=== PATIENT | female | born 1945 | race Caucasian/White ===

== ENCOUNTER 2018-01-04 16:58 | Emergency (ER) | payer MEDICARE ==
[~2018-01-04] VITALS: Ht 154.9 cm; Wt 76.4 kg
[~2018-01-04 16:58] MED LIST: AMLO5TAB22 PO; ATEN-100 PO; ATOR20TA PO; COZA100T PO; HYDR-2768 PO; LEVO50TA4 PO; TAB-TAB PO
[2018-01-04] MEDS ORDERED: GADODIAMIDE PF 287 MG/ML 5 ML VIAL (for RAD MRI) IVCONTRAST ONE (16:59)
[2018-01-04 17:02] VITALS: BP 204/89; PULSE 71; RESP 18; TEMP 97.9; O2SAT 97
--- NOTE | 2018-01-04 17:27 | PD ---
HPI Chief Complaint: Chest Pain, double vision Time Seen by Provider: 17:07 Travel History International Travel<30 days: No Contact w/Intl Traveler<30days: No Traveled to known affect area: No History of Present Illness HPI This 72-year-old female says she been having double vision off and on for the past week or more. It started a week ago Tuesday. She has bouts where she sees double in the left visual giron. If she closes one eye the double vision goes away. She has been feeling dizzy. She went to see her eye doctor and she had an episode there and her eyes were moving abnormally. He told her to come to the emergency room. She says she has been having sporadic episodes. They do not last long. She has not figured out what triggers them. She does have a history of hypertension. She does not have diabetes. She does have high cholesterol. Her regular medical doctor is Dr. Canas. She has not had any recent surgery. She has had a hysterectomy in the past. She takes occasional aspirin but not on a regular basis. She is also been having occasional chest discomfort. It is not a severe pain. She says it is a precordial discomfort that just lasts for a couple of minutes. She had one episode today and she has had a few episodes over the last 10 days. PFSH Past Medical History Asthma: No Autoimmune Disease: No Cancer: No Cardiovascular Problems: Yes COPD: No Diabetes: No Endocrine: Yes Genitourinary: No Hepatitis: No Hiatal Hernia: Yes Immune Disorder: No Musculoskeletal: No (RIGHT KNEE, TENDONITIS RIGHT SHOULDER) Neurologic: No Psychiatric: No Reproductive: No Respiratory: No Thyroid Disease: Yes ?: Not Past Surgical History Body Medical Devices: NONE Ear Surgery: No Endocrine Surgery: No Eye Surgery: No Genitourinary Surgery: No Gynecologic Surgery: Yes (TOTAL HYSTERECTOMY) Oral Surgery: Yes (TONSILLECTOMY) Social History Tobacco Use: No Substance Use: No Allergies-Medications (Allergen,Severity, Reaction): Coded Allergies: penicillin G (Unverified Allergy, Mild, 01/04/18) pt states as a child she had a penicillin shot that made her vomit. states she has taken penicillin derivitives since with out a problem hydrocodone (Unverified Adverse Reaction, Intermediate, VOMITING, 01/04/18) oxycodone (Unverified Adverse Reaction, Intermediate, VOMITING, 01/04/18) Reported Meds & Prescriptions Reported Meds & Active Scripts Active Reported Multiple Vitamin 1 Tab 1 Tab PO DAILY Vitamin D3 (Cholecalciferol) 1,000 Unit Tab 1,000 Units PO DAILY Losartan (Losartan Potassium) 100 Mg Tab 100 Mg PO DAILY Amlodipine (Amlodipine Besylate) 5 Mg Tab 5 Mg PO DAILY Atorvastatin (Atorvastatin Calcium) 40 Mg Tab 40 Mg PO DAILY Atenolol 25 Mg Tab 25 Mg PO DAILY Levothyroxine (Levothyroxine Sodium) 75 Mcg Tab 75 Mcg PO DAILY Review of Systems General / Constitutional: No: Fever, Chills Eyes: Positive: Diploplia HENT: Positive: Headaches, Lightheadedness, No: Rhinitis, Rhinorrhea Cardiovascular: Positive: Chest Pain or Discomfort, No: Palpitations, Irregular Rhythm Respiratory: No: Cough, Shortness of Breath Gastrointestinal: No: Nausea, Vomiting Genitourinary: No: Urgency, Frequency Musculoskeletal: No: Myalgias, Arthralgias Skin: No Rash, No Itching Neurologic: Positive: Weakness Psychiatric: No: Anxiety Endocrine: No: Heat Intolerance Hematologic/Lymphatic: No: Easy Bruising Physical Exam Narrative GENERAL: Well-developed female SKIN: Focused skin assessment warm/dry. HEAD: Atraumatic. Normocephalic. EYES: Pupils equal and round. No scleral icterus. No injection or drainage. Her ocular movements are full. At this time she is not having diplopia and I do not see any disconjugate movements ENT: No nasal bleeding or discharge. Mucous membranes pink and moist. NECK: Trachea midline. No JVD. CARDIOVASCULAR: Regular rate and rhythm. No murmur appreciated. RESPIRATORY: No accessory muscle use. Clear to auscultation. Breath sounds equal bilaterally. GASTROINTESTINAL: Abdomen soft, non-tender, nondistended. Hepatic and splenic margins not palpable. MUSCULOSKELETAL: No obvious deformities. No clubbing. No cyanosis. No edema. NEUROLOGICAL: Awake and alert. No obvious cranial nerve deficits. Motor grossly within normal limits. Normal speech. PSYCHIATRIC: Appropriate mood and affect; insight and judgment normal. Data Data Last Documented VS Vital Signs Date Time Temp Pulse Resp B/P (MAP) Pulse Ox O2 Delivery O2 Flow Rate FiO2 01/04/18 20:58 63 16 144/65 (91) 01/04/18 20:00 97 Room Air 01/04/18 17:02 97.9 Orders Orders Electrocardiogram (01/04/18 17:21) Complete Blood Count With Diff (01/04/18 17:21) Comprehensive Metabolic Panel (01/04/18 17:21) Troponin I (01/04/18 17:21) B-Type Natriuretic Peptide (01/04/18 17:21) Prothrombin Time / Inr (Pt) (01/04/18 17:21) Act Partial Throm Time (Ptt) (01/04/18 17:21) Urinalysis - C+S If Indicated (01/04/18 17:21) Magnesium (Mg) (01/04/18 17:21) Thyroid Stimulating Hormone (01/04/18 17:21) Chest, Single Ap (01/04/18 17:21) Mri Brain W&W/O Contrast (01/04/18 17:21) Gadodiamide Pf Inj (Omniscan Pf Inj) (01/04/18 16:59) Ed Discharge Order (01/04/18 20:37) Labs Laboratory Tests Test 01/04/18 17:35 01/04/18 17:40 Urine Color YELLOW Urine Turbidity CLEAR Urine pH 6.0 Urine Specific [place] LESS/EQUAL 1.005 Urine Protein NEG mg/dL Urine Glucose (UA) NEG mg/dL Urine Ketones NEG mg/dL Urine Occult Blood NEG Urine Nitrite NEG Urine Bilirubin NEG Urine Urobilinogen 0.2 MG/DL Urine Leukocyte Esterase NEG Urine RBC 0-3 /hpf Urine WBC 0-2 /hpf Urine Squamous Epithelial Cells 0-5 /hpf Urine Bacteria NONE /hpf Microscopic Urinalysis Comment CULT NOT INDICATED White Blood Count 9.3 TH/MM3 Red Blood Count 4.96 MIL/MM3 Hemoglobin 14.8 GM/DL Hematocrit 41.8 % Mean Corpuscular Volume 84.4 FL Mean Corpuscular Hemoglobin 29.9 PG Mean Corpuscular Hemoglobin Concent 35.4 % Red Cell Distribution Width 12.4 % Platelet Count 299 TH/MM3 Mean Platelet Volume 7.1 FL Neutrophils (%) (Auto) 75.4 % Lymphocytes (%) (Auto) 18.6 % Monocytes (%) (Auto) 4.6 % Eosinophils (%) (Auto) 0.8 % Basophils (%) (Auto) 0.6 % Neutrophils # (Auto) 7.0 TH/MM3 Lymphocytes # (Auto) 1.7 TH/MM3 Monocytes # (Auto) 0.4 TH/MM3 Eosinophils # (Auto) 0.1 TH/MM3 Basophils # (Auto) 0.1 TH/MM3 CBC Comment DIFF FINAL Differential Comment Prothrombin Time 10.0 SEC Prothromb Time International Ratio 1.0 RATIO Activated Partial Thromboplast Time 26.1 SEC Blood Urea Nitrogen 12 MG/DL Creatinine 0.68 MG/DL Random Glucose 122 MG/DL Total Protein 8.0 GM/DL Albumin 3.9 GM/DL Calcium Level 9.4 MG/DL Magnesium Level 2.0 MG/DL Alkaline Phosphatase 117 U/L Aspartate Amino Transf (AST/SGOT) 32 U/L Alanine Aminotransferase (ALT/SGPT) 60 U/L Total Bilirubin 0.2 MG/DL Sodium Level 140 MEQ/L Potassium Level 3.7 MEQ/L Chloride Level 106 MEQ/L Carbon Dioxide Level 23.9 MEQ/L Anion Gap 10 MEQ/L Estimat Glomerular Filtration Rate 85 ML/MIN Troponin I LESS THAN 0.02 NG/ML B-Type Natriuretic Peptide 10 PG/ML Thyroid Stimulating Hormone 3rd Gen 2.130 uIU/ML MDM Medical Decision Making Medical Screen Exam Complete: Yes Emergency Medical Condition: Yes Medical Record Reviewed: Yes Differential Diagnosis Differential includes TIA, CVA, tumor, atypical chest pain, coronary artery disease Narrative Course I have ordered a MRI of the brain because the patient is having dizziness associated with some double vision concerning for central origin. Reading is pending and disposition will be determined by oncoming physician. Diagnosis Primary Impression: Diplopia Jose Mckoy MD January 04, 2018 17:27
[2018-01-04 18:00] VITALS: BP 157/73; PULSE 73; RESP 16
[2018-01-04 18:01] LABS: BILIRUBIN, URINE NEG (NEG); BLOOD, URINE NEG (NEG); GLUCOSE,URINE NEG (NEG); KETONE, URINE NEG (NEG); NITRITE,URINE NEG (NEG); URINE COLOR YELLOW (YELLW/STRAW); URINE LEUKOCYTE ESTERASE NEG (NEG)
[2018-01-04 18:02] LABS: BASOPHIL # 0.1 TH/MM3 (0-0.2); BASOPHIL % 0.6 % (0.0-2.0); EOSINOPHIL # 0.1 TH/MM3 (0-0.4); EOSINOPHIL % 0.8 % (0.0-4.0); HEMATOCRIT 41.8 % (35.0-46.0); HEMOGLOBIN 14.8 GM/DL (11.6-15.3); LYMPH % 18.6 % (9.0-44.0); LYMPHOCYTE # 1.7 TH/MM3 (1.0-4.8); MEAN CELL VOLUME 84.4 FL (80.0-100.0); MEAN CORPUSCULAR HEMOGLOBIN 29.9 PG (27.0-34.0); MEAN CORPUSCULAR HGB CONC 35.4 % (32.0-36.0); MEAN PLATELET VOLUME 7.1 FL (7.0-11.0); MONO % 4.6 % (0.0-8.0); MONOCYTE # 0.4 TH/MM3 (0-0.9); NEUT % 75.4 % (16.0-70.0); PLATELET COUNT 299 TH/MM3 (150-450); RED BLOOD COUNT 4.96 MIL/MM3 (4.00-5.30); RED CELL DISTRIBUTION WIDTH 12.4 % (11.6-17.2); WHITE BLOOD COUNT 9.3 TH/MM3 (4.0-11.0)
--- NOTE | 2018-01-04 18:02 | RADRPT ---
EXAM DATE: 01/04/2018 6:00 PM EDT AGE/SEX: 72 years / Female INDICATIONS: Chest discomfort, dizziness for 1 week CLINICAL DATA: This is the patient's initial encounter. Patient reports that signs and symptoms have been present for 1 week and indicates a pain score of 0/10. MEDICAL/SURGICAL HISTORY: None. None. COMPARISON: No prior [facility] exams available for comparison. FINDINGS: A single AP view of the chest demonstrates the lungs to be symmetrically aerated without evidence of mass, infiltrate or effusion. The cardiomediastinal contours are unremarkable. Osseous structures a re intact. CONCLUSION: 1. No acute cardiopulmonary disease. Electronically signed by: Wale Reddy MD 01/04/2018 6:01 PM EDT
[2018-01-04] MEDS ORDERED: ATOR40TA16 PO (18:06)
[2018-01-04] MEDS ORDERED: ATEN25TA PO (18:06)
[2018-01-04] MEDS ORDERED: LOSA100T PO (18:06)
[2018-01-04] MEDS ORDERED: VITA100064 PO (18:06)
[2018-01-04] MEDS ORDERED: MULTTAB67 PO (18:06)
[2018-01-04] MEDS ORDERED: LEVO75TA3 PO (18:06)
[2018-01-04] MEDS ORDERED: AMLO5TAB2 PO (18:06)
[2018-01-04 18:07] LABS: RBC, URINE 0-3 /hpf (0-3); WBC, URINE 0-2 /hpf (0-5)
[2018-01-04 18:08] LABS: SQUAMOUS EPITHELIAL CELL URINE 0-5 /hpf (0-5)
[2018-01-04 18:09] LABS: CHLORIDE 106 MEQ/L (98-107); SODIUM (NA) 140 MEQ/L (136-145)
[2018-01-04 18:12] LABS: CALCIUM 9.4 MG/DL (8.5-10.1)
[2018-01-04 18:13] LABS: ALBUMIN 3.9 GM/DL (3.4-5.0); BICARBONATE 23.9 MEQ/L (21.0-32.0); BLOOD UREA NITROGEN 12 MG/DL (7-18); GLUCOSE,RANDOM 122 MG/DL (74-106)
[2018-01-04 18:16] LABS: ALT (GPT) 60 U/L (10-53); AST (GOT) 32 U/L (15-37); CREATININE 0.68 MG/DL (0.50-1.00); GLOMERULAR FILTRATION RATE 85 ML/MIN (>89)
[2018-01-04 18:17] LABS: TOTAL BILIRUBIN ADULT 0.2 MG/DL (0.2-1.0)
[2018-01-04 18:19] LABS: ALKALINE PHOSPHATASE 117 U/L (45-117)
[2018-01-04 18:21] LABS: TROPONIN I LESS THAN 0.02 NG/ML (0.02-0.05)
[2018-01-04 19:00] VITALS: BP 156/67; PULSE 69; RESP 16; O2SAT 95
--- NOTE | 2018-01-04 19:58 | RADRPT ---
EXAM DATE: 01/04/2018 7:53 PM EDT AGE/SEX: 72 years / Female INDICATIONS: Dizziness. Double vision, lightheadedness, headaches CLINICAL DATA: This is the patient's initial encounter. Patient reports that signs and symptoms have been present for 1 day and indicates a pain score of 0/10. MEDICAL/SURGICAL HISTORY: Hypertension. Thyroid, Chloesterol Hysterectomy. Plionidal cyst, Bun ionectomy, trigger finger, Arthroscopic Knee, Tonsillectomy COMPARISON: No prior [facility] exams available for comparison. TECHNIQUE: Multiplanar, multisequence examination of the brain was performed without and with 15 ml O mniscan (gadodiamide) contrast as a single exam dose. FINDINGS: Cerebrum: Mild diffuse cerebral volume loss. The ventricles are normal for age. No evidence of midl ine shift, mass lesion, hemorrhage or acute infarction. No extraaxial fluid collections are seen. T he pituitary gland and suprasellar cistern are normal in configuration. White Matter: Mild periventricular and patchy deep white matter focal T2 prolongation. Posterior Fossa: The cerebellum and brainstem are intact. The 4th ventricle is midline. The cerebel lopontine angle is unremarkable. The cerebellar tonsils are normal in position. Diffusion Imaging: No focal areas of restricted diffusion are seen. No evidence of acute infarction . Extracranial: The visualized portions of the orbits and paranasal sinuses are unremarkable. Post Contrast: No abnormal areas of parenchymal or dural enhancement. No evidence of blood-brain ba rrier breakdown. CONCLUSION: 1. Senescent changes with mild periventricular small vessel ischemic white matter demyelination. 2. Otherwise, unremarkable MRI examination of the brain. Specifically, no acute infarction, mass or hemorrhage. Electronically signed by: Wale Reddy MD 01/04/2018 7:56 PM EDT
[2018-01-04 20:00] VITALS: BP 142/67; PULSE 66; RESP 16; O2SAT 97
--- NOTE | 2018-01-04 20:37 | PD ---
Physical Exam Date Seen by Provider: January 04, 2018 Narrative Patient was checked out to me at 7 PM pending an MRI of her brain for further evaluation of intermittent diplopia. Data Data Last Documented VS Vital Signs Date Time Temp Pulse Resp B/P (MAP) Pulse Ox O2 Delivery O2 Flow Rate FiO2 01/04/18 19:00 69 16 156/67 (96) 95 Room Air 01/04/18 17:02 97.9 Orders Orders Electrocardiogram (01/04/18 17:21) Complete Blood Count With Diff (01/04/18 17:21) Comprehensive Metabolic Panel (01/04/18 17:21) Troponin I (01/04/18 17:21) B-Type Natriuretic Peptide (01/04/18 17:21) Prothrombin Time / Inr (Pt) (01/04/18 17:21) Act Partial Throm Time (Ptt) (01/04/18 17:21) Urinalysis - C+S If Indicated (01/04/18 17:21) Magnesium (Mg) (01/04/18 17:21) Thyroid Stimulating Hormone (01/04/18 17:21) Chest, Single Ap (01/04/18 17:21) Mri Brain W&W/O Contrast (01/04/18 17:21) Gadodiamide Pf Inj (Omniscan Pf Inj) (01/04/18 16:59) Labs Laboratory Tests Test 01/04/18 17:35 01/04/18 17:40 Urine Color YELLOW Urine Turbidity CLEAR Urine pH 6.0 Urine Specific [place] LESS/EQUAL 1.005 Urine Protein NEG mg/dL Urine Glucose (UA) NEG mg/dL Urine Ketones NEG mg/dL Urine Occult Blood NEG Urine Nitrite NEG Urine Bilirubin NEG Urine Urobilinogen 0.2 MG/DL Urine Leukocyte Esterase NEG Urine RBC 0-3 /hpf Urine WBC 0-2 /hpf Urine Squamous Epithelial Cells 0-5 /hpf Urine Bacteria NONE /hpf Microscopic Urinalysis Comment CULT NOT INDICATED White Blood Count 9.3 TH/MM3 Red Blood Count 4.96 MIL/MM3 Hemoglobin 14.8 GM/DL Hematocrit 41.8 % Mean Corpuscular Volume 84.4 FL Mean Corpuscular Hemoglobin 29.9 PG Mean Corpuscular Hemoglobin Concent 35.4 % Red Cell Distribution Width 12.4 % Platelet Count 299 TH/MM3 Mean Platelet Volume 7.1 FL Neutrophils (%) (Auto) 75.4 % Lymphocytes (%) (Auto) 18.6 % Monocytes (%) (Auto) 4.6 % Eosinophils (%) (Auto) 0.8 % Basophils (%) (Auto) 0.6 % Neutrophils # (Auto) 7.0 TH/MM3 Lymphocytes # (Auto) 1.7 TH/MM3 Monocytes # (Auto) 0.4 TH/MM3 Eosinophils # (Auto) 0.1 TH/MM3 Basophils # (Auto) 0.1 TH/MM3 CBC Comment DIFF FINAL Differential Comment Prothrombin Time 10.0 SEC Prothromb Time International Ratio 1.0 RATIO Activated Partial Thromboplast Time 26.1 SEC Blood Urea Nitrogen 12 MG/DL Creatinine 0.68 MG/DL Random Glucose 122 MG/DL Total Protein 8.0 GM/DL Albumin 3.9 GM/DL Calcium Level 9.4 MG/DL Magnesium Level 2.0 MG/DL Alkaline Phosphatase 117 U/L Aspartate Amino Transf (AST/SGOT) 32 U/L Alanine Aminotransferase (ALT/SGPT) 60 U/L Total Bilirubin 0.2 MG/DL Sodium Level 140 MEQ/L Potassium Level 3.7 MEQ/L Chloride Level 106 MEQ/L Carbon Dioxide Level 23.9 MEQ/L Anion Gap 10 MEQ/L Estimat Glomerular Filtration Rate 85 ML/MIN Troponin I LESS THAN 0.02 NG/ML B-Type Natriuretic Peptide 10 PG/ML Thyroid Stimulating Hormone 3rd Gen 2.130 uIU/ML [facility] Supervised Visit with EUGENIO: No Narrative Course Last Impressions Chest X-Ray 01/04/181720 Signed Impressions: CONCLUSION: 1. No acute cardiopulmonary disease. Brain MRI 01/04/181720 Signed Impressions: CONCLUSION: 1. Senescent changes with mild periventricular small vessel ischemic white mat ter demyelination. 2. Otherwise, unremarkable MRI examination of the brain. Specifically, no acut e infarction, mass or hemorrhage. Physician Communication Physician Communication Dr. Foy. The patient will be discharged to home with instructions to take an aspirin a day. Follow-up as an outpatient with Dr. Canas. Diagnosis Primary Impression: Intermittent diplopia Additional Instruction: Follow-up with Dr. Canas Disposition: 01 DISCHARGE HOME Condition: Stable Anitha Edmondson MD January 04, 2018 20:37
[2018-01-04 20:58] VITALS: BP 144/65
--- NOTE | 2018-01-05 15:04 | EKG ---
Date Performed: 01/04/2018 Time Performed: 17:12:54 PTAGE: 72 years EKG: Sinus rhythm RIGHT BUNDLE BRANCH BLOCK LEFT ANTERIOR FASCICULAR BLOCK MODERATE VOLTAGE CRITERIA FOR LVH, CONSIDER NORMAL VARIANT ABNORMAL ECG Since the PREVIOUS TRACING , no significant change noted PREVIOUS TRACIN06/20/2003 07.45 DOCTOR: Edilberto Lgaos Interpretating Date/Time 01/05/2018 15:02:58
== END 2018-01-04 21:00 | disposition home or self-care (01) ==
LOC: PHED 16:58
DX: H53.2 Diplopia (principal); R42 Dizziness and giddiness; R07.89 Other chest pain; I10 Essential (primary) hypertension; E78.00 Pure hypercholesterolemia, unspecified; I45.10 Unspecified right bundle-branch block; I44.4 Left anterior fascicular block; R94.31 Abnormal electrocardiogram [ECG] [EKG]; Z79.899 Other long term (current) drug therapy
CPT/HCPCS: 70553; 71045; 80053; 81001; 83735; 83880; 84443; 84484; 85025; 85610; 85730; 93005; 99285; A9579